=== PATIENT | female | born 1975 | race Caucasian/White ===

== ENCOUNTER 2019-09-08 18:41 | Emergency (ER) | payer SELFPAY ==
[~2019-09-08] VITALS: Ht 152.4 cm; Wt 61.2 kg
--- NOTE | 2019-09-08 19:24 | ED Fever ---
History of Present Illness General Stated Complaint: EXPOSED TO COVID-19 PT Source: patient Exam Limitations: no limitations History of Present Illness Date Seen by Provider: Sep 08, 2019 Time Seen by Provider: 19:10 Initial Comments 43-year-old female presents with exposure to COVID-19. 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 Patient herself denied any symptoms upon arrival. Patient has a 35-year-old brother with some disability the does have cough fever and feeling shortness of breath. Patient did have a fever upon presentation him however she did not feel like she was febrile. Allergies and Home Medications Allergies Coded Allergies: No Known Drug Allergies (Unverified , 09/08/19) Patient Home Medication List Home Medication List Reviewed: Yes Review of Systems Review of Systems Constitutional: no symptoms reported; No chills, No fever EENTM: no symptoms reported Cardiovascular: no symptoms reported Gastrointestinal: no symptoms reported Genitourinary: no symptoms reported Musculoskeletal: no symptoms reported Skin: no symptoms reported Past Kbwmdic-Rvwwqb-Rzwncr Hx Past Med/Social Hx: Reviewed Nursing Past Med/Soc Hx Patient Social History Recent Foreign Travel: No Contact w/Someone Who Travel: No Physical Exam Vital Signs - First Documented 09/08/19 19:29 Temp 38.0 Pulse 132 Resp 16 B/P (MAP) 197/113 (141) O2 Delivery Room Air Capillary Refill : Height: '" Weight: lbs. oz. kg; BMI Method: General Appearance: WD/WN, no apparent distress HEENT: PERRL/EOMI Respiratory: no respiratory distress Cardiovascular: normal peripheral pulses, tachycardia Gastrointestinal: non tender, soft Extremities: normal range of motion, non-tender Neurologic/Psychiatric: alert, normal mood/affect, oriented x 3 Skin: normal color, warm/dry Progress/Results/Core Measures Suspected Sepsis SIRS Temperature: Pulse: Respiratory Rate: Blood Pressure / Mean: Results/Orders Lab Results Laboratory Tests Test 09/08/19 19:20 Range/Units Group A Streptococcus Screen NEGATIVE NEGATIVE Micro Results Microbiology 09/08/19 Influenza Types A,B Antigen (JUAN JOSE) - Final, Complete My Orders Orders - BATOOL HOLLIDAY DO Influenza A And B Antigens (09/08/19 19:21) Rapid Strep A Screen (09/08/19 19:21) 2019 Coronavirus Sars-Cov-2 So (09/08/19 19:21) Chest 1 View Ap/Pa Only (09/08/19 19:21) Acetaminophen Tablet (Tylenol Tablet) (09/08/19 19:25) Vital Signs/I&O 09/08/19 19:29 Temp 38.0 Pulse 132 Resp 16 B/P (MAP) 197/113 (141) O2 Delivery Room Air Capillary Refill : Departure Impression Primary Impression: Upper respiratory infection Qualified Codes: J06.9 - Acute upper respiratory infection, unspecified Disposition: HOME, SELF-CARE Condition: Stable Departure-Patient Inst. Patient Instructions: COVID19 Add. Discharge Instructions: Tylenol or ibuprofen as needed for fever Incentive spirometry or similar exercise 3-4 times a day Emergency department focuses on treating and ruling out life-threatening diseases. Whenever possible, a diagnosis is given. However, most patients are given an impression based on their history, physical exam, and workup during your brief time in the ER. Information about probable diagnosis and other educational material has been provided. Please take the time to read and understand this information. It is very important that you follow up with a physician as discussed during the visit today. Failure to adhere to your follow-up instructions may lead to severe disability, injury, or so please make sure to keep your appointments or obtain one as requested. Please keep in mind the emergency department is not designed to your primary care or "family doctor" and nonurgent issues are best evaluated by an outpatient physician BATOOL HOLLIDAY DO Sep 08, 2019 19:24
[2019-09-08] MEDS ORDERED: ACETAMINOPHEN 500 MG TAB (TYLENOL) PO STA (19:25)
--- NOTE | 2019-09-08 19:39 | Diagnostic Imaging Report ---
INDICATION: Cough. Febrile. FINDINGS: Portable chest. The lungs are well-aerated and clear. There is no air-trapping. The heart is not enlarged. No pulmonary edema or hilar adenopathy. No pneumothorax or pleural effusion. No bony abnormalities. IMPRESSION: Normal portable chest. Dictated by: Dictated on workstation # [id number]
[2019-09-08 19:57] VITALS: BP 174/117
== END 2019-09-08 20:03 | disposition home or self-care (01) ==
LOC: ER FS 18:44
DX: J06.9 Acute upper respiratory infection, unspecified (principal)
CPT/HCPCS: 36415; 71045; 87430; 87635; 87804